=== PATIENT | male | born 1980 | race Caucasian/White ===

== ENCOUNTER 2016-08-20 12:09 | Emergency (ER) | payer BC ==
[~2016-08-20] VITALS: Ht 172.7 cm; Wt 80.0 kg
[~2016-08-20 12:09] MED LIST: ZOFR4TAB3 SL
[2016-08-20 12:16] VITALS: BP 110/76; PULSE 69; RESP 16; TEMP 98.2; O2SAT 99
[2016-08-20] MEDS ORDERED: LEVO.05 PO (12:27)
[2016-08-20] MEDS ORDERED: MORPHINE SULFATE 4 MG/ML INJ IV PUSH ONE (12:45)
[2016-08-20] MEDS ORDERED: ONDANSETRON HCL 4 MG/2 ML VIAL IVP ONE (12:45)
[2016-08-20] MEDS ORDERED: SODIUM CHLORIDE 0.9% FLUSH 10 ML FLUSH IV FLUSH PRN (12:45)
--- NOTE | 2016-08-20 12:48 | PD ---
HPI Chief Complaint: Abdominal Pain Time Seen by Provider: 12:39 Travel History International Travel<30 days: No Contact w/Intl Traveler<30days: No Traveled to known affect area: No History of Present Illness HPI 36yo M with PMH of hypothyroidism presents to the ED with c/o epigastric pain that started this morning. States pain is sharp, twisting, constant and nonradiating. Mild nausea. This is the third episode this month and seems worst in the morning. Does not seem to be related to food intake. Denies any fever, vomiting, dysuria, hematuria, penile discharge, testicular pain. PFSH Past Medical History Diminished Hearing: No Immunizations Current: Yes Thyroid Disease: Yes (HYPO) Tetanus Vaccination: < 5 Years Influenza Vaccination: No Past Surgical History Surgical History: No Previous Surgery Social History Alcohol Use: Yes (BEER DAILY) Tobacco Use: No Substance Use: No Allergies-Medications (Allergen,Severity, Reaction): Coded Allergies: No Known Allergies (Unverified , 08/20/16) Reported Meds & Prescriptions Reported Meds & Active Scripts Active Reported Synthroid (Levothyroxine Sodium) 50 Mcg Tab 50 Mcg PO DAILY Review of Systems Except as stated in HPI: all other systems reviewed are Neg Physical Exam Narrative GENERAL: 36yo M not in distress. SKIN: Focused skin assessment warm/dry. HEAD: Atraumatic. Normocephalic. EYES: Pupils equal and round. No scleral icterus. No injection or drainage. ENT: No nasal bleeding or discharge. Mucous membranes pink and moist. NECK: Trachea midline. No JVD. CARDIOVASCULAR: Regular rate and rhythm. No murmur appreciated. RESPIRATORY: No accessory muscle use. Clear to auscultation. Breath sounds equal bilaterally. GASTROINTESTINAL: Abdomen soft, +TTP epigastric region. No rebound tenderness or guarding. MUSCULOSKELETAL: No obvious deformities. No clubbing. No cyanosis. No edema. NEUROLOGICAL: Awake and alert. No obvious cranial nerve deficits. Motor grossly within normal limits. Normal speech. PSYCHIATRIC: Appropriate mood and affect; insight and judgment normal. Data Data Last Documented VS Vital Signs Date Time Temp Pulse Resp B/P Pulse Ox O2 Delivery O2 Flow Rate FiO2 08/20/16 13:45 16 08/20/16 12:16 98.2 69 110/76 99 Orders Complete Blood Count With Diff (08/20/16 12:44) Comprehensive Metabolic Panel (08/20/16 12:44) Lipase (08/20/16 12:44) Urinalysis - C+S If Indicated (08/20/16 12:44) Ct Abd/Pel W Iv Contrast(Rout) (08/20/16 12:44) Iv Access Insert/Monitor (08/20/16 12:44) Ecg Monitoring (08/20/16 12:44) Oximetry (08/20/16 12:44) Morphine Inj (Morphine Inj) (08/20/16 12:45) Ondansetron Inj (Zofran Inj) (08/20/16 12:45) Sodium Chloride 0.9% Flush (Ns Flush) (08/20/16 12:45) Morphine Inj (Morphine Inj) (08/20/16 12:56) Morphine Inj (Morphine Inj) (08/20/16 13:45) Iohexol 350 Inj (Omnipaque 350 Inj) (08/20/16 13:41) Labs Laboratory Tests Test 08/20/16 12:51 White Blood Count 13.5 TH/MM3 Red Blood Count 5.27 MIL/MM3 Hemoglobin 15.0 GM/DL Hematocrit 43.9 % Mean Corpuscular Volume 83.4 FL Mean Corpuscular Hemoglobin 28.4 PG Mean Corpuscular Hemoglobin 34.1 % Concent Red Cell Distribution Width 12.8 % Platelet Count 229 TH/MM3 Mean Platelet Volume 8.3 FL Neutrophils (%) (Auto) 80.4 % Lymphocytes (%) (Auto) 10.4 % Monocytes (%) (Auto) 4.7 % Eosinophils (%) (Auto) 4.3 % Basophils (%) (Auto) 0.2 % Neutrophils # (Auto) 10.9 TH/MM3 Lymphocytes # (Auto) 1.4 TH/MM3 Monocytes # (Auto) 0.6 TH/MM3 Eosinophils # (Auto) 0.6 TH/MM3 Basophils # (Auto) 0.0 TH/MM3 CBC Comment DIFF FINAL Differential Comment Urine Collection Type CLEAN CATCH Urine Color YELLOW Urine Turbidity CLEAR Urine pH 6.0 Urine Specific [place] 1.020 Urine Protein NEG mg/dL Urine Glucose (UA) 100 mg/dL Urine Ketones NEG mg/dL Urine Occult Blood NEG Urine Nitrite NEG Urine Bilirubin NEG Urine Leukocyte Esterase NEG Urine RBC 0-3 /hpf Urine Squamous Epithelial 0-5 /hpf Cells Microscopic Urinalysis Comment CULT NOT INDICATED Urine Collection Time 12:51 Sodium Level 142 MEQ/L Potassium Level 4.4 MEQ/L Chloride Level 108 MEQ/L Carbon Dioxide Level 28.1 MEQ/L Anion Gap 6 MEQ/L Blood Urea Nitrogen 16 MG/DL Creatinine 1.00 MG/DL Estimat Glomerular Filtration 84 ML/MIN Rate Random Glucose 91 MG/DL Calcium Level 8.9 MG/DL Total Bilirubin 0.7 MG/DL Aspartate Amino Transf 23 U/L (AST/SGOT) Alanine Aminotransferase 25 U/L (ALT/SGPT) Alkaline Phosphatase 57 U/L Total Protein 7.8 GM/DL Albumin 4.0 GM/DL Lipase 220 U/L [facility] Medical Decision Making Medical Screen Exam Complete: Yes Emergency Medical Condition: Yes Differential Diagnosis Gastritis vs. pancreatitis vs. peptic ulcer disease Narrative Course 36yo M with epigastric abdominal pain today. This is episodic and third episode this month. Labs reviewed, mild leukocytosis. Lipase normal. UA negative. CTa/p showed normal examination. ileum just proximal to terminal ileum decompressed but no inflammation or wall thickening. Pt has no RLQ pain. Given morphine and zofran. Pt reevaluated at bedside and pain and nausea has resolved. Pt is to follow up with GI as outpatient. Diagnosis Primary Impression: Abdominal pain Qualified Code: R10.13 - Epigastric pain Patient Instructions: General Instructions Departure Forms: Tests/Procedures Additional Instructions: Please follow up with your PMD or GI for further outpatient work up of epigastric abdominal pain. Return to the ED if symptoms worsen. Med/Other Pt SpecificInfo: Prescription(s) given Scripts Acetaminophen (Tylenol)325 Mg [id number] Mg PO Q6H PRN (PAIN SCALE 1 TO 4) #20 TAB Ref 0 Prov:ElizabethCarey null 08/20/16 Disposition: 01 DISCHARGE HOME Condition: Stable ElizabethVanessa nullelijah LOTT Aug 20, 2016 12:48
[2016-08-20 12:53] VITALS: RESP 18; O2SAT 99
[2016-08-20] MEDS ORDERED: MORPHINE SULFATE 8 MG/ML INJ ONE (12:56)
[2016-08-20 13:01] LABS: AUTOMATED NEUTROPHIL # 10.9 TH/MM3 (1.8-7.7); BASOPHIL % 0.2 % (0.0-2.0); EOSINOPHIL # 0.6 TH/MM3 (0-0.4); EOSINOPHIL % 4.3 % (0.0-4.0); HEMATOCRIT 43.9 % (39.0-51.0); HEMO FLAGS DIFF FINAL; LYMPH % 10.4 % (9.0-44.0); LYMPHOCYTE # 1.4 TH/MM3 (1.0-4.8); MEAN CELL VOLUME 83.4 FL (80.0-100.0); MEAN CORPUSCULAR HEMOGLOBIN 28.4 PG (27.0-34.0); MEAN CORPUSCULAR HGB CONC 34.1 % (32.0-36.0); MONO % 4.7 % (0.0-8.0); NEUT % 80.4 % (16.0-70.0); PLATELET COUNT 229 TH/MM3 (150-450); RED BLOOD COUNT 5.27 MIL/MM3 (4.50-5.90); RED CELL DISTRIBUTION WIDTH 12.8 % (11.6-17.2); WHITE BLOOD COUNT 13.5 TH/MM3 (4.0-11.0)
[2016-08-20 13:06] LABS: BLOOD, URINE NEG (NEG); GLUCOSE,URINE 100 mg/dL (NEG); KETONE, URINE NEG (NEG); NITRITE,URINE NEG (NEG)
[2016-08-20 13:12] LABS: COMMENT (UR) CULT NOT INDICATED; CULTURE IF INDICATED CULT NOT INDICATED; METHOD OF COLLECTION CLEAN CATCH; RBC, URINE 0-3 /hpf (0-3); SQUAMOUS EPITHELIAL CELL URINE 0-5 /hpf (0-5); URINE COLOR YELLOW (YELLW/STRAW)
[2016-08-20 13:13] LABS: CHLORIDE 108 MEQ/L (98-107); POTASSIUM 4.4 MEQ/L (3.5-5.1); SODIUM (NA) 142 MEQ/L (136-145)
[2016-08-20 13:17] LABS: ANION GAP 6 MEQ/L (5-15); BICARBONATE 28.1 MEQ/L (21.0-32.0); BLOOD UREA NITROGEN 16 MG/DL (7-18)
[2016-08-20 13:19] LABS: ALT (GPT) 25 U/L (12-78)
[2016-08-20 13:20] LABS: AST (GOT) 23 U/L (15-37); GLOMERULAR FILTRATION RATE 84 ML/MIN (>89)
[2016-08-20 13:21] LABS: TOTAL BILIRUBIN ADULT 0.7 MG/DL (0.2-1.0)
[2016-08-20 13:22] LABS: ALKALINE PHOSPHATASE 57 U/L (45-117)
[2016-08-20] MEDS ORDERED: IOHEXOL 350 MG/ML 10 ML VIAL (for RAD DIAG) IV ONE (13:41)
[2016-08-20 13:45] VITALS: RESP 16
[2016-08-20] MEDS ORDERED: MORPHINE SULFATE 8 MG/ML INJ IV PUSH ONE (13:45)
--- NOTE | 2016-08-20 13:53 | RADRPT ---
EXAM DATE/TIME: 08/20/2016 13:20 [facility] COMPARISON: No previous studies available for comparison. INDICATIONS : Upper abdominal pain with intermittent nausea. IV CONTRAST: 97 cc Omnipaque 350 (iohexol) IV ORAL CONTRAST: No oral contrast ingested. RADIATION DOSE: 8.50 CTDIvol (mGy) MEDICAL HISTORY : Hypothyroidism. SURGICAL HISTORY : None. ENCOUNTER: Initial ACUITY: 1 month PAIN SCALE: 4/10 LOCATION: Bilateral upper quadrant TECHNIQUE: Volumetric scanning of the abdomen and pelvis was performed. Using automated exposure control and ad justment of the mA and/or kV according to patient size, radiation dose was kept as low as reasonably achievable to obtain optimal diagnostic quality images. DICOM format image data is available electro nically for review and comparison. FINDINGS: LOWER LUNGS: The visualized lower lungs are clear. LIVER: Homogeneous density without lesion. There is no dilation of the biliary tree. No calcified [place] es. SPLEEN: Normal size without lesion. PANCREAS: Within normal limits. KIDNEYS: Normal in size and shape. There is no mass, stone or hydronephrosis. ADRENAL GLANDS: Within normal limits. VASCULAR: There is no aortic aneurysm. BOWEL/MESENTERY: The stomach, small bowel, and colon demonstrate no acute abnormality. There is no free intraperitone al air or fluid. ABDOMINAL WALL: Within normal limits. RETROPERITONEUM: There is no lymphadenopathy. BLADDER: No wall thickening or mass. REPRODUCTIVE: Within normal limits. INGUINAL: There is no lymphadenopathy or hernia. MUSCULOSKELETAL: Within normal limits for patient age. CONCLUSION: Normal examination. Trace fluid in the pelvis. The ileum just proximal to the terminal ileum is decom pressed but I don't see any definite wall thickening or surrounding inflammation. Zac López MD on August 20, 2016 at 13:50 Board Certified Radiologist. This report was verified electronically.
[2016-08-20] MEDS ORDERED: TYLE325T PO (15:09)
[2016-08-20 15:53] VITALS: BP 118/84
== END 2016-08-20 15:20 | disposition home or self-care (01) ==
LOC: PHED 12:09
DX: R10.13 Epigastric pain (principal); E03.9 Hypothyroidism, unspecified
CPT/HCPCS: 74177; 80053; 81001; 83690; 85025; 96374; 96375; 99285; J2270; J2405; Q9967